=== PATIENT | male | born 1995 | race African-American/Black ===

== ENCOUNTER 2018-09-14 21:33 | Emergency (ER) | payer OTHER ==
[~2018-09-14] VITALS: Ht 182.9 cm; Wt 78.6 kg
[2018-09-14] MEDS ORDERED: NS 1,000 ML IV ONE (23:45)
[2018-09-14] MEDS ORDERED: KETOROLAC 30 MG/ML VIAL (J1885) IV ONE (23:45)
[2018-09-15 00:37] LABS: HEMATOCRIT 41.5 % (42.0-52.0); MEAN CORPUSCULAR HEMOGLOBIN 29.6 pg (27.0-33.0); MEAN CORPUSCULAR HGB CONC 36.1 g/dl (32.0-36.5); MEAN CORPUSCULAR VOLUME 81.9 fl (80.0-96.0); PLATELET COUNT, AUTOMATED 251 10^3/uL (150-450); RED BLOOD COUNT 5.07 10^6/uL (4.30-6.10); WHITE BLOOD COUNT 9.2 10^3/uL (4.0-10.0)
[2018-09-15 01:10] LABS: ALBUMIN 4.1 GM/DL (3.2-5.2); ALT/SGPT 57 U/L (12-78); BILIRUBIN,DIRECT 0.4 MG/DL (0.0-0.2); BILIRUBIN,TOTAL 1.9 MG/DL (0.2-1.0); CK-MB VALUE MASS 3.4 NG/ML (<3.6); CPK CREATINE PHOSPHOKINASE 2267 U/L (39-308); MB/CK RELATIVE INDEX 0.15 (< OR =4); TOTAL PROTEIN 7.4 GM/DL (6.4-8.2); TROPONIN I < 0.02 NG/ML (< 0.10)
[2018-09-15] MEDS ORDERED: ROBA500T PO (02:29)
[2018-09-15] MEDS ORDERED: IBUP-1022 PO (02:29)
[2018-09-15 02:39] VITALS: BP 123/71
--- NOTE | 2018-09-15 06:37 | ECGEPIP ---
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
--- NOTE | 2018-09-16 06:35 | ED PDOC ---
Post-Departure Follow-Up ecg reading faxed to [facility] for fu Balbir Tang MD Sep 16, 2018 06:35
[2018-09-18 08:24] LABS: Lyme Disease IgG Ab 18 kDa Ban Absent (.); Lyme Disease IgG Ab 23 kDa Ban Absent (.); Lyme Disease IgG Ab 28 kDa Ban Absent (.); Lyme Disease IgG Ab 30 kDa Ban Absent (.); Lyme Disease IgG Ab 39 kDa Ban Absent (.); Lyme Disease IgG Ab 41 kDa Ban Present (.); Lyme Disease IgG Ab 45 kDa Ban Absent (.); Lyme Disease IgG Ab 58 kDa Ban Absent (.); Lyme Disease IgG Ab 66 kDa Ban Absent (.); Lyme Disease IgG Ab 93 kDa Ban Absent (.); Lyme Disease IgG West Blot Int Negative (.); Lyme Disease IgG/IgM Antibodie <0.91 ISR (0.00-0.90); Lyme Disease IgM Ab 23 kDa Ban Absent (.); Lyme Disease IgM Ab 39 kDa Ban Absent (.); Lyme Disease IgM Ab 41 kDa Ban Absent (.); Lyme Disease IgM Ab Quantitati 1.21 index (0.00-0.79); Lyme Disease IgM West Blot Int Negative (.)
== END 2018-09-15 02:41 | disposition home or self-care (01) ==
LOC: M ED 21:33
DX: M62.82 Rhabdomyolysis (principal)
CPT/HCPCS: 80047; 80076; 82550; 82553; 84484; 85027; 86617; 93005; 96361; 96374; 99284; J1885

== ENCOUNTER 2020-12-02 10:29 | Emergency (ER) | payer OTHER ==
[~2020-12-02] VITALS: Ht 185.4 cm; Wt 82.0 kg
[~2020-12-02 10:29] MED LIST: IBUP-1022 PO; ROBA500T PO
--- NOTE | 2020-12-02 11:11 | REP ---
INDICATION: hemoptysis, cough COMPARISON: None. TECHNIQUE: PA and lateral. FINDINGS: The mediastinum and cardiac silhouette are normal. The lung santo are clear and without acute consolidation, effusion, or pneumothorax. The skeletal structures are intact and normal. IMPRESSION: No acute cardiopulmonary process. <Electronically signed by Linus Roach > 12/02/20 110
[2020-12-02 12:14] VITALS: BP 137/66
== END 2020-12-02 12:27 | disposition home or self-care (01) ==
LOC: M ED 10:29
DX: R59.0 Localized enlarged lymph nodes (principal); R05.9 Cough, unspecified; T50.B95A Adverse effect of other viral vaccines, initial encounter; M79.10 Myalgia, unspecified site